=== PATIENT | male | born 1985 | race African-American/Black ===

== ENCOUNTER 2018-01-22 20:03 | Emergency (ER) | payer MEDICARE, MEDICAID ==
--- NOTE | 2018-01-22 20:48 | ED Physician Chart ---
ED Chief Complaint/HPI - Patient Information Allergies:: Allergies Allergy/AdvReac Type Severity Reaction Status Date / Time ketorolac [From Toradol] Allergy Verified 05/30/17 00:36 morphine Allergy Verified 05/30/17 00:36 Vitals:: Vital Signs - 8 hr 01/22/18 20:07 HR 100 RR 18 BP 107/48 O2 Sat % 97 Historian:: Patient Review:: Nurse's Note Reviewed Family Medical History - Family Member Mother History Unknown: Yes ED Septic Shock - . Is Septic Shock (SBP<90, OR Lactate>4 mmol\L) present?: No - <6hrs of presentation: Vital Signs: Vital Signs - 8 hr 01/22/18 20:07 HR 100 RR 18 BP 107/48 O2 Sat % 97 ED Reassessment (Disposition) - Patient Disposition Discharge/Transfer:: left without being seen by [facility]
== END 2018-01-22 20:38 | disposition short-term general hospital (02) ==
LOC: ER 20:03
DX: E86.0 Dehydration (principal); M79.606 Pain in leg, unspecified; Z88.5 Allergy status to narcotic agent; Z88.6 Allergy status to analgesic agent